=== PATIENT | female | born 1980 | race Caucasian/White ===

== ENCOUNTER → 2017-03-25 | Outpatient (CLI) | payer OTHER ==
[~2017-03-25] MED LIST: ATARAX10 MG PO; FLEXERIL10 MG PO; HYDROCODON-ACE1 EAC7 PO; LOESTRIN1 EACH PO; PROZAC40 MG PO
== END | disposition home or self-care (01) ==
LOC: RES 09:29
DX: R06.2 Wheezing (principal)
CPT/HCPCS: 94060; 94726; 94729